=== PATIENT | female | born 1980 | race Caucasian/White ===

== ENCOUNTER 2017-01-11 12:46 | Outpatient (CLI) | payer SELFPAY ==
[2013-02-02 05:13] VITALS: BP 112/68
== END 2017-01-11 12:47 ==
LOC: LAB 12:46 → CARD 12:47
PROVIDERS: ATTEND Internal Medicine Cardiovascular Disease
DX: I10 Essential (primary) hypertension (principal); R00.1 Bradycardia, unspecified; F17.210 Nicotine dependence, cigarettes, uncomplicated
CPT/HCPCS: 99213